=== PATIENT | male | born 1995 | race Caucasian/White ===

== ENCOUNTER 2018-08-17 15:01 | Emergency (ER) | payer OTHER ==
[~2018-08-17] VITALS: Ht 177.8 cm; Wt 77.1 kg
[2018-08-17 15:23] VITALS: BP 157/95
--- NOTE | 2018-08-17 16:10 | NUR ---
PT. BIB SELF REFFERED BY [facility] FOR MINOR CONCUSSION SYMPTOMS KNEED SELF IN [place] LAST WEEK, REQUIRED STITCHES. SLIGHT HEADACHE 3/10 FRONTAL HEADACHE THAT IS NON RADIAITNG AND THROBBING , PT C/O DIZZINESS, IRRITABLE TO NOISE, -BLURRY VISION. RR EVEN AND UNLABORED. PERRLA 3MM BILAT BRISK. BILAT HAND DEPARTMENT CHAIRPERSON 3+ STRONG. PT. IS AWAKE AND ALERT AND SPEAKING IN FULL AND COMPLETE SENTENCES. C/O PHOTOPHOBIA " AT TIMES". SAFETY PRECAUTIONS IN PLACE. WILL CONTINUE TO MONITOR.ER MADE AWARE.
[2018-08-17 16:36] VITALS: BP 156/92
--- NOTE | 2018-08-17 16:36 | NUR ---
Patient discharged with v/s stable. Written and verbal after care instructions given and explained. Patient verbalized understanding. Ambulatory with steady gait. All questions addressed prior to discharge. Advised to follow up with PMD. DENIES ANY DIZZYNESS.
== END 2018-08-17 16:36 | disposition home or self-care (01) ==
LOC: MED 15:01
DX: S06.0X0A Concussion without loss of consciousness, initial encounter (principal); F32.9 Major depressive disorder, single episode, unspecified; X58.XXXA Exposure to other specified factors, initial encounter; Y93.12 Activity, springboard and platform diving; Y92.89 Other specified places as the place of occurrence of the external cause; Y99.8 Other external cause status
CPT/HCPCS: 99281; 99282